=== PATIENT | male | born 1985 | race American Indian/Alaskan Native ===

== ENCOUNTER 2018-03-15 06:18 | Emergency (ER) | payer SELFPAY ==
[2018-03-15 07:12] LABS: Basophils % (Auto) 0.2 % (0.0-1.8); Eosinophils # (Auto) 0.1 K/mm3 (0.0-0.4); Eosinophils % (Auto) 1.5 % (0.0-4.3); Hematocrit 40.2 % (35.5-45.6); Hemoglobin 13.4 gm/dl (11.8-15.2); Lymphocytes # (Auto) 1.2 K/mm3 (1.2-5.4); Lymphocytes % (Auto) 25.3 % (13.4-35.0); Mean Corpuscular HGB Conc 33 % (32-34); Mean Corpuscular Hemoglobin 30 pg (28-32); Mean Corpuscular Volume 91 fl (84-94); Monocytes # (Auto) 0.4 K/mm3 (0.0-0.8); Monocytes % (Auto) 8.8 % (0.0-7.3); Platelet Count 224 K/mm3 (140-440); Red Blood Count 4.42 M/mm3 (3.65-5.03); Red Cell Distribution Width 13.9 % (13.2-15.2)
[2018-03-15 07:28] LABS: BUN/Creatinine Ratio 20; Blood Urea Nitrogen 14 mg/dL (9-20); Calcium 8.5 mg/dL (8.4-10.2); Hemolysis Index 8
[2018-03-15 07:31] LABS: Bilirubin,Urine NEG (Negative); Blood,Urine NEG (Negative); Color,Urine Yellow (Yellow); Mucus,Urine FEW /HPF; Protein,Urine <15 mg/dL mg/dL (Negative)
--- NOTE | 2018-03-15 09:09 | Emergency Department Report ---
ED General Adult HPI - General Chief complaint: Hypoglycemia Stated complaint: LOW BLOOD SUGAR Time Seen by Provider: 03/15/18 09:08 Source: patient, family Mode of arrival: Ambulatory Limitations: No Limitations - History of Present Illness Initial comments: This is a 33 year old insulin-dependent diabetic male who states that his sugar was low this morning. He did not actually check it. He presents with his girlfriend who states he was alone and was "too high" meaning that he was altered. He is not altered now at all. He ate a Pop Tart. When his girlfriend arrived she gave him Coca-Cola. He states that he did check his sugar last night and gave himself 10 units of regular insulin despite his sugar only being 180. He also took his usual 30 units of Levemir. I asked him if that corresponded to his sliding scale which it would not apparently be consistent with one. He stated that probably it was not. He admitted that he just got out of intermediate and does not have a primary care provider. He states that he came to the emergency department primarily for "a referral". He does not report antecedent illness or symptoms. -: Gradual Associated Symptoms: denies other symptoms - Related Data Home Medications Medication Instructions Recorded Confirmed Last Taken Insulin Lispro [Humalog 100 30 units SQ BID 03/15/18 03/15/18 03/14/18 UNITS/ML Kwikpen] Previous Rx's Medication Instructions Recorded Last Taken Type Insulin Regular, Human [Humulin R] 100 unit SC BID #1 vial 03/15/18 Unknown Rx Allergies Allergy/AdvReac Type Severity Reaction Status Date / Time cefaclor [From Ceclor] Allergy Swelling Verified 03/15/18 06:34 clarithromycin [From Biaxin] Allergy Swelling Verified 03/15/18 06:34 Sulfa (Sulfonamide Allergy Swelling Verified 03/15/18 06:34 Antibiotics) ED Review of Systems ROS: Stated complaint: LOW BLOOD SUGAR Other details as noted in HPI Constitutional: denies: chills, fever Eyes: denies: eye pain, eye discharge, vision change ENT: denies: ear pain, throat pain Respiratory: denies: cough, shortness of breath, wheezing Cardiovascular: denies: chest pain, palpitations Endocrine: no symptoms reported Gastrointestinal: denies: abdominal pain, nausea, diarrhea Genitourinary: denies: urgency, dysuria Musculoskeletal: denies: back pain, joint swelling, arthralgia Skin: denies: rash, lesions Neurological: denies: headache, weakness, paresthesias Psychiatric: denies: anxiety, depression Hematological/Lymphatic: denies: easy bleeding, easy bruising ED Past Medical Hx - Past Medical History Previous Medical History?: Yes Hx Diabetes: Yes Additional medical history: 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 13 - Surgical History Past Surgical History?: No - Social History Smoking Status: Current Every Day Smoker Substance Use Type: None - Medications Home Medications: Home Medications Medication Instructions Recorded Confirmed Last Taken Type Insulin Lispro [Humalog 100 30 units SQ BID 03/15/18 03/15/18 03/14/18 History UNITS/ML Kwikpen] Insulin Regular, Human [Humulin R] 100 unit SC BID #1 vial 03/15/18 Unknown Rx ED Physical Exam - General Limitations: No Limitations General appearance: alert, in no apparent distress - Head Head exam: Present: atraumatic, normocephalic - Eye Eye exam: Present: normal appearance. Absent: scleral icterus - ENT ENT exam: Present: mucous membranes moist - Neck Neck exam: Present: normal inspection. Absent: tenderness, meningismus - Respiratory Respiratory exam: Present: normal lung sounds bilaterally. Absent: respiratory distress - Cardiovascular Cardiovascular Exam: Present: regular rate, normal rhythm. Absent: systolic murmur, diastolic murmur, rubs, gallop - GI/Abdominal GI/Abdominal exam: Present: soft, normal bowel sounds. Absent: distended, tenderness, guarding, rebound, rigid - Rectal Rectal exam: Present: deferred - Extremities Exam Extremities exam: Present: normal inspection - Back Exam Back exam: Present: normal inspection - Neurological Exam Neurological exam: Present: alert, oriented X3, CN II-XII intact. Absent: motor sensory deficit - Psychiatric Psychiatric exam: Present: normal affect, normal mood - Skin Skin exam: Present: warm, dry, intact, normal color. Absent: rash ED Course Vital Signs 03/15/18 03/15/18 06:21 06:29 Temperature 97.5 F L 98.5 F Pulse Rate 74 69 Respiratory 18 Rate Blood Pressure 129/97 129/97 O2 Sat by Pulse 98 99 Oximetry - Reevaluation(s) Reevaluation #1: Patient remains neurologically intact. He does not have any altered mental status. Labs and urinalysis were within acceptable limits. He was fed. He will be referred to the [facility]. He will be Accu-Chek checked again after eating. Is appropriate for outpatient disposition. 03/15/18 09:29 ED Medical Decision Making - Lab Data Result diagrams: 03/15/18 06:56 03/15/18 06:56 Laboratory Results - last 24 hr 03/15/18 03/15/18 03/15/18 06:29 06:56 06:56 WBC 4.7 RBC 4.42 Hgb 13.4 Hct 40.2 MCV 91 MCH 30 MCHC 33 RDW 13.9 Plt Count 224 Lymph % (Auto) 25.3 Miner % (Auto) 8.8 H Eos % (Auto) 1.5 Baso % (Auto) 0.2 Lymph # 1.2 Miner # 0.4 Eos # 0.1 Baso # 0.0 Seg Neutrophils % 64.2 Seg Neutrophils # 3.0 Sodium 140 Potassium 3.7 Chloride 102.1 Carbon Dioxide 25 Anion Gap 17 BUN 14 Creatinine 0.7 L Estimated GFR > 60 BUN/Creatinine Ratio 20 Glucose 89 POC Glucose 75 Calcium 8.5 Urine Color Urine Turbidity Urine pH Ur Specific Moore Urine Protein Urine Glucose (UA) Urine Ketones Urine Blood Urine Nitrite Urine Bilirubin Urine Urobilinogen Ur Leukocyte Esterase Urine WBC (Auto) Urine RBC (Auto) Urine Mucus 03/15/18 07:05 WBC RBC Hgb Hct MCV MCH MCHC RDW Plt Count Lymph % (Auto) Miner % (Auto) Eos % (Auto) Baso % (Auto) Lymph # Miner # Eos # Baso # Seg Neutrophils % Seg Neutrophils # Sodium Potassium Chloride Carbon Dioxide Anion Gap BUN Creatinine Estimated GFR BUN/Creatinine Ratio Glucose POC Glucose Calcium Urine Color Yellow Urine Turbidity Clear Urine pH 5.0 Ur Specific Moore 1.027 Urine Protein <15 mg/dl Urine Glucose (UA) Neg Urine Ketones 20 Urine Blood Neg Urine Nitrite Neg Urine Bilirubin Neg Urine Urobilinogen 2.0 Ur Leukocyte Esterase Neg Urine WBC (Auto) 1.0 Urine RBC (Auto) 1.0 Urine Mucus Few Critical care attestation.: If time is entered above; I have spent that time in minutes in the direct care of this critically ill patient, excluding procedure time. ED Disposition Clinical Impression: Hypoglycemic reaction, Insulin dependent diabetes mellitus Disposition: OP ADMIT IP TO THIS HOSP Is pt being admited?: No Does the pt Need Aspirin: No Condition: Stable Instructions: Diabetes Mellitus Type 2 in Adults (ED), Diabetic Hypoglycemia ( ED) Additional Instructions: Do not give insulin at night if your blood sugar is less than 200. The dose U gave herself is in excess of what would be recommended. Check your sliding scale again. He had been referred to the [facility] for further management of your diabetes. Check your sugar more frequently. Prescriptions: Insulin Regular, Human [Humulin R] 100 unit SC BID #1 vial Referrals: PRIMARY CARE [Primary Care Provider] - 3-5 Days Time of Disposition: 09:31
[2018-03-15 09:57] VITALS: BP 141/97
== END 2018-03-15 09:57 | disposition admitted as inpatient to this hospital (09) ==
LOC: ED 06:18
DX: E16.1 Other hypoglycemia (principal); E13.9 Other specified diabetes mellitus without complications; F17.200 Nicotine dependence, unspecified, uncomplicated; Z79.4 Long term (current) use of insulin; Z88.2 Allergy status to sulfonamides; Z88.1 Allergy status to other antibiotic agents; Z88.8 Allergy status to other drugs, medicaments and biological substances
CPT/HCPCS: 36415; 80048; 81001; 82962; 85025; 93005; 93010